=== PATIENT | male | born 1955 | race Caucasian/White ===

== ENCOUNTER → 2021-08-19 | Outpatient (CLI) | payer MEDICARE, OTHER ==
[2021-08-19 11:38] LABS: HEMATOCRIT 47 % (40-54); HEMOGLOBIN 15.9 g/dL (13.3-17.7); MEAN CORPUSCULAR HEMOGLOBIN 31 pg (25-34); MEAN CORPUSCULAR HGB CONC 34 g/dL (32-36); MEAN CORPUSCULAR VOLUME 92 fL (80-99); MEAN PLATELET VOLUME 9.4 fL (9.0-12.2); PLATELET COUNT 243 10^3/uL (130-400); WHITE BLOOD COUNT 8.1 10^3/uL (4.3-11.0)
[2021-08-19 11:50] LABS: ALBUMIN 4.4 GM/DL (3.2-4.5); CHLORIDE 103 MMOL/L (98-107); POTASSIUM 3.9 MMOL/L (3.6-5.0); SODIUM 139 MMOL/L (135-145)
[2021-08-19 11:52] LABS: CALCIUM 9.6 MG/DL (8.5-10.1)
[2021-08-19 11:53] LABS: GLUCOSE 133 MG/DL (70-105); TOTAL PROTEIN 7.5 GM/DL (6.4-8.2)
[2021-08-19 11:54] LABS: CARBON DIOXIDE 25 MMOL/L (21-32)
[2021-08-19 11:55] LABS: BILIRUBIN,TOTAL 1.6 MG/DL (0.1-1.0)
[2021-08-19 11:56] LABS: ALKALINE PHOSPHATASE 71 U/L (40-136)
[2021-08-19 11:57] LABS: CREATININE SERUM 0.91 MG/DL (0.60-1.30); GFR ESTIMATED 94
[2021-08-19 11:58] LABS: BUN/CREATININE RATIO 15
[2021-08-19 11:59] LABS: ALANINE AMINOTRANSFERASE 53 U/L (0-55)
[2021-08-19 12:00] LABS: CREATINE KINASE 241 U/L (30-200)
== END ==
LOC: CARD 11:10
PROVIDERS: ATTEND Family Medicine
DX: R07.9 Chest pain, unspecified (principal); M79.89 Other specified soft tissue disorders
CPT/HCPCS: 36415; 80053; 82550; 84484; 85027; 86141; 93005

== ENCOUNTER → 2021-10-04 | Outpatient (CLI) | payer MEDICARE | LOC: CARD 13:00 | PROVIDERS: ATTEND Family Medicine | DX: I51.7 Cardiomegaly (principal); R74.8 Abnormal levels of other serum enzymes | CPT/HCPCS: 93306 ==

== ENCOUNTER → 2021-10-18 | Outpatient (CLI) | payer MEDICARE ==
[2021-10-18 10:10] VITALS: BP 128/73
--- NOTE | 2021-10-18 12:32 | Cardiology Stress Test Report ---
Stress Test Report Date of Procedure/Referring: Date of Procedure: Oct 18, 2021 PCP Estrella uMkherjee DO Admitting Physician Admitting Physician: Attending Physician: Estrella Mukherjee DO Indications: CP Baseline Heart Rate: 64 Baseline Blood Pressure: Blood Pressure Systolic: 128 Blood Pressure Diastolic: 73 Baseline EKG: Baseline EKG: NSR Summary/Conclusion: Summary: In summary, the patient started exercising with a baseline heart rate, blood pressure and EKG mentioned above Patient was able to exercise for a total of 7 minutes on William protocol, METs 8.5 Maximum heart rate 148 Maximum blood pressure 193/89 Stress EKG, Minimal nondiagnostic changes Recovery EKG , Return to baseline Conclusion: 1. Good exercise tolerance for a total of 7 minutes on William protocol, 8.5 METs, achieving 94 percent of maximum expected heart rate 2. Minimal nondiagnostic EKG changes with exercise returned to baseline during recovery 3. No arrhythmia was noted Copy Copies To 1: ESTRELLA MUKHERJEE BASHAR J MD Oct 18, 2021 12:32
== END ==
LOC: CARD 09:28
PROVIDERS: ATTEND Family Medicine
DX: R07.9 Chest pain, unspecified (principal)
CPT/HCPCS: 93017

== ENCOUNTER → 2022-06-16 | Outpatient (CLI) | payer MEDICARE ==
[2022-06-16 10:02] LABS: BASOPHILS # (AUTO) 0.1 10^3/uL (0.0-0.1); BASOPHILS % (AUTO) 1 % (0-10); EOSINOPHILS # (AUTO) 0.1 10^3/uL (0.0-0.3); EOSINOPHILS % (AUTO) 1 % (0-10); HEMATOCRIT 47 % (40-54); HEMOGLOBIN 16.5 g/dL (13.3-17.7); LYMPHOCYTES # (AUTO) 2.3 10^3/uL (1.0-4.0); LYMPHOCYTES % (AUTO) 32 % (12-44); MEAN CORPUSCULAR HEMOGLOBIN 32 pg (25-34); MEAN CORPUSCULAR HGB CONC 35 g/dL (32-36); MEAN CORPUSCULAR VOLUME 91 fL (80-99); MEAN PLATELET VOLUME 9.2 fL (9.0-12.2); MONOCYTES # (AUTO) 0.6 10^3/uL (0.0-1.0); MONOCYTES % (AUTO) 8 % (0-12); NEUTROPHILS # (AUTO) 4.2 10^3/uL (1.8-7.8); NEUTROPHILS % (AUTO) 58 % (42-75); PLATELET COUNT 251 10^3/uL (130-400); WHITE BLOOD COUNT 7.2 10^3/uL (4.3-11.0)
[2022-06-16 10:32] LABS: ALANINE AMINOTRANSFERASE 65 U/L (0-55); ALBUMIN 4.7 GM/DL (3.2-4.5); ALKALINE PHOSPHATASE 86 U/L (40-136); BILIRUBIN,TOTAL 1.8 MG/DL (0.1-1.0); BUN/CREATININE RATIO 10; CALCIUM 9.3 MG/DL (8.5-10.1); CARBON DIOXIDE 26 MMOL/L (21-32); CHLORIDE 103 MMOL/L (98-107); CHOLESTEROL 154 MG/DL (< 200); CREATININE SERUM 0.86 MG/DL (0.60-1.30); GFR ESTIMATED 96; GLUCOSE 144 MG/DL (70-105); HDL CHOLESTEROL 36 MG/DL (40-60); SODIUM 138 MMOL/L (135-145); TOTAL PROTEIN 7.9 GM/DL (6.4-8.2)
[2022-06-16 10:55] LABS: FREE T4 (FREE THYROXINE) 1.02 NG/DL (0.70-1.48)
[2022-06-16 11:40] LABS: TRIGLYCERIDES 182 MG/DL (<150); VLDL CHOLESTEROL 36 MG/DL (5-40)
== END ==
LOC: LAB 09:47
PROVIDERS: ATTEND Family Medicine
DX: I10 Essential (primary) hypertension (principal); K21.9 Gastro-esophageal reflux disease without esophagitis; N50.89 Other specified disorders of the male genital organs; G47.00 Insomnia, unspecified; R73.03 Prediabetes
CPT/HCPCS: 36415; 80053; 80061; 83036; 84153; 84439; 84443; 85025

== ENCOUNTER → 2022-06-23 | Outpatient (CLI) | payer MEDICARE ==
--- NOTE | 2022-06-23 12:37 | Diagnostic Imaging Report ---
PROCEDURE: US Scrotum. TECHNIQUE: Multiple real-time grayscale images were obtained over the scrotum in various projections bilaterally. INDICATION: Right testicular swelling. Right testicle measures 4.9 x 2.5 x 3.9 cm and the left testicle measures 4.8 x 2.6 x 3.2 cm. Both testes demonstrate homogeneous echotexture. No discrete testicular mass is detected. There is blood flow to both testes. Small epididymal head cysts are noted bilaterally, measuring 4 mm on the right and 3 mm on the left. There is a moderate right and small left hydrocele. No varicocele is seen. IMPRESSION: 1. No evidence of testicular mass or vascular compromise. 2. Bilateral epididymal head cysts. 3. Bilateral hydroceles, right greater. Dictated by: Dictated on workstation # [id number]
== END ==
LOC: RAD 10:45
PROVIDERS: ATTEND Nurse Practitioner Family
DX: N43.3 Hydrocele, unspecified (principal); N50.3 Cyst of epididymis
CPT/HCPCS: 76870